=== PATIENT | female | born 1990 | race American Indian/Alaskan Native ===

== ENCOUNTER 2020-06-17 16:01 | Inpatient (IN) | payer MEDICAID ==
[2020-06-17] MEDS ORDERED: DOCUSATE SODIUM 100 MG CAP PO PRN ×2 (17:00→18:50)
[2020-06-17 17:22] LABS: Hematocrit 27.7 % (30.3-42.9); Hemoglobin 9.4 gm/dl (10.1-14.3); Mean Corpuscular HGB Conc 34 % (30-34); Mean Corpuscular Volume 86 fl (79-97); Platelet Count 236 K/mm3 (140-440); Red Blood Count 3.21 M/mm3 (3.65-5.03); Red Cell Distribution Width 15.9 % (13.2-15.2)
[2020-06-17] MEDS ORDERED: ACETAMINOPHEN 500 MG TAB PO ONE (17:35)
[2020-06-17] MEDS ORDERED: ALUM-MAG HYDROXIDE-SIMETHICONE 200-200-20MG/5ML ORAL LIQD 30 ML PO ONE (17:36)
--- NOTE | 2020-06-17 17:43 | Event Note ---
Date: 06/17/20 (Elevated blood pressures in office and chest pain)
[2020-06-17 17:48] LABS: Bacteria,Urine 1+ /HPF (Negative); Bilirubin,Urine NEG (Negative); Blood,Urine NEG (Negative); Color,Urine Yellow (Yellow); Urobilinogen,Urine < 2.0 mg/dL (<2.0)
[2020-06-17 17:54] LABS: Uric Acid 6.9 mg/dL (3.5-7.6)
[2020-06-17 17:57] LABS: Alanine Aminotransferase < 5 units/L (7-56)
--- NOTE | 2020-06-17 18:27 | History and Physical Report ---
History of Present Illness Date of examination: 06/17/20 (Sent from office d/t elevated blood pressures) Date of admission: 06/17/20 Chief complaint: Was sent from office d/t elevated blood pressures and +3 protein in her urine. History of present illness: Pt was sent from the office today d/t elevated blood pressures and +3 protein in her urine. Upon admission to triage blood pressures were noted to be 130-150's/80-90's. EDC Confirmation: 07/27/2020 Gestational Age: 34.2 wks on admission. Past History : 2 Term Births: 1 Premature Births: 0 Living Children: 1 Para: 1 Mult. Births: 0 Prev : 1 Prev. attempt? 0 Aborta: 0 Elect. Ab: 0 Spont. Ab: 0 Ectopics: 0 # 1 Delivery date: 2019 Weeks Gestation: 34 Delivery type: Sex: Male weight: 8-1 Comments: IOL - GDM (diet), LGA Risk Factors: Smoked Tobacco Use: Never smoker Smokeless Tobacco Use: Never Passive smoke exposure: no Drug use: no HIV high-risk behavior: no Caffeine use: 1 drinks per day Alcohol use: no Exercise: yes Times per week: 2 Type of Exercise: walking Seatbelt use: preg-residence counselor % Dietary Counseling: pn yes Past Medical History: Negative Past Medical History Past Surgical History: Breast Reduction: 2017 Umbilical hernia repair in childhood General Comments - FH: Mother - Breast Cancer Social History: Patient is single Smoking History: Patient has never smoked. Past Medical History Surgery (Non-medical typist): Breast Reduction: 2017 Umbilical hernia repair in childhood Abnormal PAP: negative EDWARD Exposure: negative Infertility: negative Uterine Anomaly: negative Uterine Surgery (not C/S): negative Other Gynecologic Problems: negative Family Hx: Mother - Breast Cancer Social Hx: Patient is single Smoking History: Patient has never smoked. Infection History Hx of STD: none HIV Risk Eval: no Hepatitis B Risk Eval: low risk Personal hx. of genital herpes: yes Rash, Viral, or Febrile illness since last LMP? no Varicella/Chicken Pox Status: Previous Disease TB Risk: no Genetic History Congenital Heart Defect: Mom: no Dad: no Vikas Disease: Mom: no Dad: no Thalassemia Mom: no Dad: no Neural Tube Defect Mom: no Dad: no Down's Syndrome Mom: no Dad: no Chandu-Sachs Mom: no Dad: no Sickle Cell Disease/Trait Mom: no Dad: no Hemophilia Mom: no Dad: no Muscular Dystrophy Mom: no Dad: no Cystic Fibrosis Mom: no Dad: no Libyb Chorea Mom: no Dad: no Mental Retardation Mom: no Dad: no Fragile X Mom: no Dad: no Other Genetic/Chromosomal Disorder Mom: no Dad: no Child w/other defect Mom: no Dad: no Enviromental Exposures Enviromental Exposures Reviewed Xray Exposure: no Medication, drug, or alcohol use since LMP: no Chemical/Other Exposure: no Exposure to Cat Liter: no Hx of Parvovirus (Fifth Disease): no Occupational Exposure to Children: none Comments: Working from home Active Medications (reviewed today): None Current Allergies (reviewed today): No known allergies Past History Past Medical History: no pertinent history Past Surgical History: breast surgery (Breast reduction in 2017.), section, other (Gestational diabetes in last . Umbilical hernia repair in childhood. ) Family/Genetic History: cancer (Mother has breast cancer. ) Social history: no significant social history - Obstetrical History Expected Date of Delivery: 07/27/20 Actual Gestation: 34 Week(s) 2 Day(s) : 2 Para: 1 Hx # Term Pregnancies: 0 Number of Pregnancies: 1 Spontaneous Abortions: 0 Induced : 0 Number of Living Children: 1 Medications and Allergies Allergies Allergy/AdvReac Type Severity Reaction Status Date / Time No Known Allergies Allergy Unverified 06/17/20 16:34 Home Medications Medication Instructions Recorded Confirmed Last Taken Type Docusate Sodium [Colace] 100 mg PO BID PRN #60 capsule 06/17/20 Unknown Rx Ferrous Sulfate [Feosol 325 MG tab] 325 mg PO QDAY #30 tablet 06/17/20 Unknown Rx Review of Systems All systems: negative - Vital Signs Vital signs: Vital Signs Pulse Pulse Ox 77 98 06/17/20 16:41 06/17/20 16:41 Temp Pulse Resp BP Pulse Ox 99.2 F 71 16 157/96 98 06/17/20 16:48 06/17/20 18:21 06/17/20 17:49 06/17/20 18:13 06/17/20 18:21 Pt denies PARSON, blurred vision, spots before her eyes, shortness of breath, and upper abdominal pain. While in triage pt stated to RN that she was having chest pain. Upon provider assessment, she stated that she was not longer having chest pain. Lab results reviewed and Dr. Conn consulted. Discussed with patient koffi t she will need to be admitted to labor and delivery for 24 hours so we can collect her urine, monitor her blood pressures and watch her baby on the monitor. - Physical Exam Breasts: Positive: deferred Cardiovascular: Regular rate Lungs: Positive: Normal air movement Abdomen: Positive: normal appearance, soft Uterus: Positive: normal size Extremities: Positive: normal Deep Tendon Reflex Grade: Normal +2 - Obstetrical FHR: category 1 Uterine Contraction Monitor Mode: External Uterine Contraction Pattern: Absent Results Result Diagrams: 06/17/20 16:49 06/17/20 16:49 Abnormal lab results 06/17/20 06/17/20 Range/Units 16:49 16:49 RBC 3.21 L (3.65-5.03) M/mm3 Hgb 9.4 L (10.1-14.3) gm/dl Hct 27.7 L (30.3-42.9) % RDW 15.9 H (13.2-15.2) % ALT < 5 L (7-56) units/L All other labs normal. GBS UNKNOWN. HBsAg Screen Negative Negative *1 RPR Non Reactive Non Reactive *2 Rubella Antibodies, IgG 3.74 index Immune >0.99 *3 Non-immune <0.90 Equivocal 0.90 - 0.99 Immune >0.99 ABO Grouping A *4 Rh Factor Positive *5 Please note: Prior records for this patient's ABO / Rh type are not available for additional verification. Antibody Screen Negative Negative *6 WBC 6.6 x10E3/uL 3.4-10.8 *7 RBC [L] 3.47 x10E6/uL 3.77-5.28 *8 Hemoglobin [L] 10.2 g/dL 11.1-15.9 *9 Hematocrit [L] 30.8 % 34.0-46.6 *10 MCV 89 fL 79-97 *11 MCH 29.4 pg 26.6-33.0 *12 MCHC 33.1 g/dL 31.5-35.7 *13 RDW 13.6 % 11.7-15.4 *14 Platelets 242 x10E3/uL 150-450 *15 Neutrophils 68 % Not Estab. *16 Lymphs 24 % Not Estab. *17 Monocytes 6 % Not Estab. *18 Eos 2 % Not Estab. *19 Basos 0 % Not Estab. *20 ! Immature Cells <No Reported Value> *21 Neutrophils (Absolute) 4.5 x10E3/uL 1.4-7.0 *22 Lymphs (Absolute) 1.6 x10E3/uL 0.7-3.1 *23 Monocytes(Absolute) 0.4 x10E3/uL 0.1-0.9 *24 Eos (Absolute) 0.1 x10E3/uL 0.0-0.4 *25 Baso (Absolute) 0.0 x10E3/uL 0.0-0.2 *26 ! Immature Granulocytes 0 % Not Estab. *27 ! Immature Grans (Abs) 0.0 x10E3/uL 0.0-0.1 *28 ! NRBC <No Reported Value> *29 Hematology Comments: <No Reported Value> *30 Tests: (2) AFP Tetra ([id number]) ! Results Report *31 ! Test Results: [A] *Screen Positive* *32 ! Gest. Age on Collection Date 19.9 WEEKS *33 ! Gestat. Age Based On LJ *34 07/26/2020 ! M[age]J 30.5 yr *35 ! Race Black *36 ! Weight 184 lbs *37 ! Insulin Dep Diabetes No *38 ! Multiple Gestation No *39 ! AFP Value 50.8 ng/mL *40 ! AFP MoM 0.94 *41 ! hCG Value 35859 mIU/mL *42 ! hCG MoM 2.25 *43 ! uE3 Value 1.04 ng/mL *44 ! uE3 MoM 0.49 *45 ! YOLANDA Value 251.88 pg/mL *46 ! YOLANDA MoM 1.51 *47 ! OSBR [place] 1 [place] [address] *48 ! DSR (Second Trimester) 1 IN 123 *49 ! DSR (By Age) 1 IN 741 *50 ! T18 Risk Not increased *51 ! T18 (By Age) 1:2885 *52 ! Interpretation DW42 *53 Interpretation: Screen Positive for Down Syndrome This patient is at increased risk to have a baby with Down Syndrome. The Down Syndrome risk was calculated using the gestational age provided, maternal age, AFP, hCG, uE3 and YOLANDA values. Approximately 75-80% of Down Syndrome can be detected by this test. This result is screen negative for open spina bifida. This test can identify up to 80% of open neural tube defects. Closed neural tube defects and some open defects may not be detected by this test. This test can identify approximately 60% of Trisomy 18. Recommendations: 1. Targeted ultrasound to confirm gestational age and rule out anomalies. 2. Do not repeat test. Repeating the test can result in false negatives. 3. Genetic counseling and amniocentesis are appropriate options. Recalculations are not recommended when gestational dating by LMP and ultrasound are within 10 days. ! Comments: [facility] *54 Frieda Fried, Ph.D., [facility] Director References: Available Upon Request. Multiples Of Median Cutoffs Abbreviation Definitions For AFP Elevations IDD- Insulin Dep Diabetes Agrawal 2.5 Black 2.8 OSBR- Open Spina Bifida IDD 2.0 Twins 4.5 Risk DSR Cutoff 1:270 DSR- Down Syndrome Risk T18 Cutoff 1:100 T18- Trisomy 18 Down Syndrome and Trisomy 18 screening are considered Investigational For further inquiries contact [employer] [facility] at [phone]. Tests: (3) HB Solu + Rflx Frac ([id number]) Hemoglobin (Hgb) Solubility [A] Positive Negative *55 Verified by repeat analysis Tests: (4) Hemoglobin Frac.w/o Solubility ([id number]) ! Hgb F 1.3 % 0.0-2.0 *56 ! Hgb A [L] 54.2 % 96.4-98.8 *57 ! Hgb S [H] 40.9 % 0.0 *58 ! Hgb C 0.0 % 0.0 *59 ! Hgb A2 [H] 3.6 % 1.8-3.2 *60 ! Hgb Variant <No Reported Value> *61 ! Interpretation HGAS1 *62 Hemoglobin pattern and concentration are consistent with sickle cell trait (heterozygous). Suggest clinical and hematologic correlation. Sickle Trait Interpretation Ranges Hgb A 50.0 - 70.0% Hgb S 30.0 - 45.0% Hgb A2 3.0 - 5.0%* *Hgb A2 values are seen to be increased over normal levels. This increase is typically due to interference from co-eluting Hgb S-subunits with the HPLC method and therefore the Hgb A2 interpretation ranges have been adjusted. Tests: (5) HIV Ag/Ab with Reflex ([id number]) HIV Screen 4th Generation wRfx Non Reactive Non Reactive *63 Tests: (6) Gest. Diabetes 1-Hr Screen ([id number]) ! Gestational Diabetes Screen [H] 141 mg/dL 65-139 *64 According to ADA, a glucose threshold of >139 mg/dL after 50-gram load identifies approximately 80% of women with gestational diabetes mellitus, while the sensitivity is further increased to approximately 90% by a threshold of >129 mg/dL. Tests: (7) HCV Ab w/Rflx to Verification ([id number]) ! HCV Ab <0.1 s/co ratio 0.0-0.9 *65 Tests: (8) Comment: ([id number]) ! Comment: SPRCS *66 Non reactive HCV antibody screen is consistent with no HCV infection, unless recent infection is suspected or other evidence exists to indicate HCV infection. Assessment and Plan A: 29 y.o. @ 34.2 wks with elevated blood pressures in the office. Hx of IUGR this . - Patient Problems (1) Elevated blood pressure complicating , antepartum Onset Date: ~06/17/20 Current Visit: Yes Status: Acute Plan to address problem: Admit to labor and delivery for observation. Pre eclampsia labs drawn. Initiate 24 hour urine. Monitor for s/sx of pre eclampsia. Steroids ordered. (2) with 34 completed weeks gestation Onset Date: ~06/17/20 Current Visit: Yes Status: Acute Plan to address problem: Continuous EFM at this time. Monitor for s/sx of distress.
[2020-06-17] MEDS ORDERED: ACETAMINOPHEN 325 MG TAB PO PRN (18:50)
[2020-06-17] MEDS ORDERED: ALUM-MAG HYDROXIDE-SIMETHICONE 200-200-20MG/5ML ORAL LIQD 30 ML PO PRN (18:50)
[2020-06-17] MEDS ORDERED: ONDANSETRON 4 MG/2 ML INJ IV PRN (18:50)
[2020-06-17] MEDS: BETAMET ACET/BETAMET NA PH 6 MG/ML INJ 5 ML MDV IM SCH (22:47)
[2020-06-17] MEDS: diphenhydrAMINE 25 MG CAP PO PRN (22:47)
--- NOTE | 2020-06-18 07:54 | Progress Note ---
Assessment and Plan - Patient Problems (1) Elevated blood pressure complicating , antepartum Onset Date: ~06/17/20 Current Visit: Yes Status: Acute Plan to address problem: Pt awake Eating diet. BP 130/80-70 Ongoing collection 24hr urine Due to be completed @ 183. Cat 1 FHT No ctx. DTR's wnl. No edema noted. IUP @ 34w elevated BP, proteinuria Stable No c/o voiced No PARSON, blurred vision, chest pain. P: complete 24hr urine (1829) 2nd dose BMZ due 2229. Will consult Dr Sanchez. Pt aware if TP is wnl she may go home after 2nd dose BMZ Subjective - Subjective Date of service: 06/18/20 (pt in good spirits; desires d/c after BMZ if poss) Principal diagnosis: IUP @ 34w3d with elevated BP and Proteinuria Patient reports: movement normal Objective - Vital Signs Vital Signs: Vital Signs - 12hr 06/17/20 06/17/20 06/17/20 19:48 19:53 19:58 Pulse Rate 66 70 62 Blood Pressure O2 Sat by Pulse 98 98 96 Oximetry 06/17/20 06/17/20 06/17/20 20:03 20:08 20:13 Pulse Rate 65 64 62 Blood Pressure O2 Sat by Pulse 96 97 97 Oximetry 06/17/20 06/17/20 06/17/20 20:15 20:18 20:23 Pulse Rate 60 66 66 Blood Pressure 142/81 O2 Sat by Pulse 97 97 Oximetry 06/17/20 06/17/20 06/17/20 20:28 20:33 20:38 Pulse Rate 68 76 78 Blood Pressure O2 Sat by Pulse 97 98 97 Oximetry 06/17/20 06/17/20 06/17/20 20:43 20:48 20:53 Pulse Rate 72 84 86 Blood Pressure O2 Sat by Pulse 99 97 98 Oximetry 06/17/20 06/17/20 06/17/20 20:58 21:03 21:14 Pulse Rate 79 89 71 Blood Pressure O2 Sat by Pulse 97 92 98 Oximetry 06/17/20 06/17/20 06/17/20 21:16 21:19 21:24 Pulse Rate 71 72 72 Blood Pressure 142/82 O2 Sat by Pulse 98 97 Oximetry 06/17/20 06/17/20 06/17/20 21:29 21:34 21:39 Pulse Rate 75 81 77 Blood Pressure O2 Sat by Pulse 97 98 97 Oximetry 06/17/20 06/17/20 06/17/20 21:44 21:49 21:54 Pulse Rate 76 76 82 Blood Pressure O2 Sat by Pulse 96 97 98 Oximetry 06/17/20 06/17/20 06/17/20 21:59 22:04 22:09 Pulse Rate 76 70 75 Blood Pressure O2 Sat by Pulse 98 99 98 Oximetry 06/17/20 06/17/20 06/17/20 22:14 22:15 22:19 Pulse Rate 67 72 80 Blood Pressure 136/73 O2 Sat by Pulse 97 97 Oximetry 06/17/20 06/17/20 06/17/20 22:24 22:29 22:34 Pulse Rate 77 73 69 Blood Pressure O2 Sat by Pulse 99 98 98 Oximetry 06/17/20 06/17/20 06/17/20 22:39 22:44 22:49 Pulse Rate 67 67 70 Blood Pressure O2 Sat by Pulse 98 98 99 Oximetry 06/17/20 06/17/20 06/17/20 22:54 22:59 23:04 Pulse Rate 67 82 69 Blood Pressure O2 Sat by Pulse 97 98 98 Oximetry 06/17/20 06/17/20 06/17/20 23:09 23:14 23:15 Pulse Rate 73 75 68 Blood Pressure 125/71 O2 Sat by Pulse 96 95 Oximetry 06/17/20 06/17/20 06/17/20 23:19 23:24 23:29 Pulse Rate 74 67 72 Blood Pressure O2 Sat by Pulse 97 97 97 Oximetry 06/17/20 06/17/20 06/17/20 23:34 23:39 23:44 Pulse Rate 74 72 72 Blood Pressure O2 Sat by Pulse 96 97 97 Oximetry 06/17/20 06/17/20 06/17/20 23:49 23:54 23:59 Pulse Rate 73 75 77 Blood Pressure O2 Sat by Pulse 97 96 97 Oximetry 06/18/20 06/18/20 06/18/20 00:04 00:09 00:14 Pulse Rate 74 78 75 Blood Pressure O2 Sat by Pulse 95 95 95 Oximetry 06/18/20 06/18/20 06/18/20 00:15 00:19 00:24 Pulse Rate 66 73 81 Blood Pressure 134/67 O2 Sat by Pulse 97 98 Oximetry 06/18/20 06/18/20 06/18/20 00:34 00:39 00:44 Pulse Rate 80 74 71 Blood Pressure O2 Sat by Pulse 88 97 98 Oximetry 06/18/20 06/18/20 06/18/20 00:48 00:49 00:54 Pulse Rate 70 75 64 Blood Pressure O2 Sat by Pulse 94 99 97 Oximetry 06/18/20 06/18/20 06/18/20 00:59 01:04 01:09 Pulse Rate 74 64 82 Blood Pressure O2 Sat by Pulse 96 97 98 Oximetry 06/18/20 06/18/20 06/18/20 01:13 01:14 01:15 Pulse Rate 70 77 71 Blood Pressure 129/60 O2 Sat by Pulse 94 97 Oximetry 06/18/20 06/18/20 06/18/20 01:19 01:24 01:29 Pulse Rate 65 68 66 Blood Pressure O2 Sat by Pulse 97 96 96 Oximetry 06/18/20 06/18/20 06/18/20 01:34 01:39 01:44 Pulse Rate 66 70 67 Blood Pressure O2 Sat by Pulse 96 96 96 Oximetry 06/18/20 06/18/20 06/18/20 01:49 01:54 01:59 Pulse Rate 70 70 69 Blood Pressure O2 Sat by Pulse 96 95 96 Oximetry 06/18/20 06/18/20 06/18/20 02:04 02:09 02:14 Pulse Rate 69 70 70 Blood Pressure O2 Sat by Pulse 95 95 95 Oximetry 06/18/20 06/18/20 06/18/20 02:15 02:19 02:24 Pulse Rate 71 63 71 Blood Pressure 136/60 O2 Sat by Pulse 93 97 96 Oximetry 06/18/20 06/18/20 06/18/20 02:29 02:34 02:39 Pulse Rate 74 68 69 Blood Pressure O2 Sat by Pulse 96 96 96 Oximetry 06/18/20 06/18/20 06/18/20 02:44 02:49 02:54 Pulse Rate 71 69 71 Blood Pressure O2 Sat by Pulse 96 97 96 Oximetry 06/18/20 06/18/20 06/18/20 02:59 03:04 03:09 Pulse Rate 71 76 73 Blood Pressure O2 Sat by Pulse 96 96 95 Oximetry 06/18/20 06/18/20 06/18/20 03:14 03:15 03:19 Pulse Rate 71 71 68 Blood Pressure 142/81 O2 Sat by Pulse 95 93 95 Oximetry 06/18/20 06/18/20 06/18/20 03:20 03:24 03:25 Pulse Rate 68 70 72 Blood Pressure O2 Sat by Pulse 94 94 94 Oximetry 06/18/20 06/18/20 06/18/20 03:29 03:34 03:39 Pulse Rate 70 70 68 Blood Pressure O2 Sat by Pulse 95 96 97 Oximetry 06/18/20 06/18/20 06/18/20 03:44 03:49 03:54 Pulse Rate 75 77 87 Blood Pressure O2 Sat by Pulse 96 97 98 Oximetry 06/18/20 06/18/20 06/18/20 03:59 04:04 04:09 Pulse Rate 75 76 75 Blood Pressure O2 Sat by Pulse 97 97 97 Oximetry 06/18/20 06/18/20 06/18/20 04:14 04:15 04:19 Pulse Rate 70 74 69 Blood Pressure 133/80 O2 Sat by Pulse 93 94 97 Oximetry 06/18/20 06/18/20 06/18/20 04:24 04:29 04:34 Pulse Rate 70 72 77 Blood Pressure O2 Sat by Pulse 97 97 96 Oximetry 06/18/20 06/18/20 06/18/20 04:39 04:44 04:49 Pulse Rate 76 76 77 Blood Pressure O2 Sat by Pulse 96 96 96 Oximetry 06/18/20 06/18/20 06/18/20 04:54 04:59 05:04 Pulse Rate 79 70 76 Blood Pressure O2 Sat by Pulse 96 97 96 Oximetry 06/18/20 06/18/20 06/18/20 05:09 05:14 05:15 Pulse Rate 74 76 87 Blood Pressure 143/82 O2 Sat by Pulse 97 96 90 Oximetry 06/18/20 06/18/20 06/18/20 05:19 05:24 05:29 Pulse Rate 76 65 69 Blood Pressure O2 Sat by Pulse 96 98 99 Oximetry 06/18/20 06/18/20 06/18/20 05:34 05:39 05:44 Pulse Rate 70 63 70 Blood Pressure O2 Sat by Pulse 99 99 98 Oximetry 06/18/20 06/18/20 06/18/20 05:49 05:54 05:59 Pulse Rate 71 72 68 Blood Pressure O2 Sat by Pulse 98 97 98 Oximetry 06/18/20 06/18/20 06/18/20 06:04 06:09 06:14 Pulse Rate 67 71 66 Blood Pressure 135/83 O2 Sat by Pulse 99 99 Oximetry 06/18/20 06/18/20 06/18/20 06:15 06:20 06:25 Pulse Rate 67 69 68 Blood Pressure O2 Sat by Pulse 97 98 97 Oximetry 06/18/20 06/18/20 06/18/20 06:30 06:35 06:40 Pulse Rate 68 75 91 H Blood Pressure O2 Sat by Pulse 97 96 96 Oximetry 06/18/20 06/18/20 06/18/20 06:45 06:50 06:55 Pulse Rate 74 72 71 Blood Pressure O2 Sat by Pulse 97 97 96 Oximetry 06/18/20 06/18/20 06/18/20 07:00 07:05 07:10 Pulse Rate 73 74 71 Blood Pressure O2 Sat by Pulse 98 98 97 Oximetry 06/18/20 06/18/20 06/18/20 07:14 07:15 07:29 Pulse Rate 72 79 77 Blood Pressure 137/73 O2 Sat by Pulse 97 97 Oximetry 06/18/20 06/18/20 07:34 07:39 Pulse Rate 84 81 Blood Pressure O2 Sat by Pulse 98 97 Oximetry - Exam Breasts: deferred Cardiovascular: Regular rate Lungs: Normal air movement Abdomen: Present: normal appearance, soft. Absent: distention, tenderness Uterus: Present: normal FHR: auscultation normal, category 1 Uterine Contraction Monitor Mode: External Uterine Contraction Pattern: Absent Uterine Tone Measurement Phase: Resting Extremities: normal Deep Tendon Reflex Grade: Normal +2 - Labs Labs: Abnormal Labs 06/17/20 06/17/20 16:49 16:49 RBC 3.21 L Hgb 9.4 L Hct 27.7 L RDW 15.9 H ALT < 5 L Laboratory Results - last 24 hr 06/17/20 06/17/20 06/17/20 16:49 16:49 17:00 WBC 6.7 RBC 3.21 L Hgb 9.4 L Hct 27.7 L MCV 86 MCH 29 MCHC 34 RDW 15.9 H Plt Count 236 Creatinine 0.6 Estimated GFR > 60 Uric Acid 6.9 AST 11 ALT < 5 L Lactate Dehydrogenase 144 Urine Color Yellow Urine Turbidity Clear Urine pH 7.0 Ur Specific [place] 1.006 Urine Protein 100 mg/dl Urine Glucose (UA) Neg Urine Ketones Neg Urine Blood Neg Urine Nitrite Neg Urine Bilirubin Neg Urine Urobilinogen < 2.0 Ur Leukocyte Esterase Sm Urine WBC (Auto) 3.0 Urine RBC (Auto) 5.0 U Epithel Cells (Auto) 3.0 Urine Bacteria (Auto) 1+ Syphilis IgG Antibody Blood Type Antibody Screen 06/17/20 06/17/20 18:34 19:06 WBC RBC Hgb Hct MCV MCH MCHC RDW Plt Count Creatinine Estimated GFR Uric Acid AST ALT Lactate Dehydrogenase Urine Color Urine Turbidity Urine pH Ur Specific [place] Urine Protein Urine Glucose (UA) Urine Ketones Urine Blood Urine Nitrite Urine Bilirubin Urine Urobilinogen Ur Leukocyte Esterase Urine WBC (Auto) Urine RBC (Auto) U Epithel Cells (Auto) Urine Bacteria (Auto) Syphilis IgG Antibody Nonreactive Blood Type A POSITIVE Antibody Screen Negative
[2020-06-18] MEDS ORDERED: PRENATAL VIT27-FE FUMARATE-FOLIC ACID VIT TAB PO SCH ×2 (10:00)
[2020-06-18] MEDS ORDERED: LACTATED RINGERS 1,000 ML ONE (20:16)
[2020-06-18 20:30] LABS: Creatinine 24 Hour,Urine 1.8 (0.8-2.8); Creatinine,Urine 56.5 mg/dL (0.1-20.0)
[2020-06-18] MEDS ORDERED: LACTATED RINGERS 1,000 ML IV SCH (20:30)
--- NOTE | 2020-06-18 20:47 | Ultrasound Report ---
ULTRASOUND OBSTETRIC LIMITED ULTRASOUND BIOPHYSICAL PROFILE INDICATION / CLINICAL INFORMATION: Proteinuria, elevated blood pressure. COMPARISON: None available. FINDINGS: BREATHING MOVEMENT = 0 GROSS BODY MOVEMENT = 2 TONE = 2 QUALITATIVE AMNIOTIC FLUID VOLUME = 2 TOTAL BIOPHYSICAL SCORE = 6/8 AMNIOTIC FLUID INDEX (cm) = 5.2 PRESENTATION: Cephalic. HEART RATE (beats per minute): 145 ADDITIONAL FINDINGS: None. IMPRESSION: 1. Biophysical Score = 6/8 2. Decreased OSMIN. Signer Name: Ashutosh Lopez MD Signed: 06/18/2020 8:42 PM Workstation Name: [id number]
[2020-06-18] MEDS: BETAMET ACET/BETAMET NA PH 6 MG/ML INJ 5 ML MDV IM SCH (22:40)
[2020-06-19 00:29] LABS: Bacteria,Urine 1+ /HPF (Negative); Bilirubin,Urine NEG (Negative); Blood,Urine NEG (Negative); Color,Urine Yellow (Yellow); Mucus,Urine FEW /HPF; Urobilinogen,Urine < 2.0 mg/dL (<2.0)
[2020-06-19 00:38] LABS: Hematocrit 27.3 % (30.3-42.9); Hemoglobin 9.6 gm/dl (10.1-14.3); Mean Corpuscular HGB Conc 35 % (30-34); Mean Corpuscular Volume 85 fl (79-97); Platelet Count 248 K/mm3 (140-440); Red Blood Count 3.23 M/mm3 (3.65-5.03); Red Cell Distribution Width 15.9 % (13.2-15.2)
[2020-06-19 00:48] LABS: Alanine Aminotransferase 9 units/L (7-56)
--- NOTE | 2020-06-19 01:10 | Progress Note ---
Assessment and Plan Single reported episode of variable decels earlier in the day after lunch RN called and reported Cat 1 strip with position chg. BPP ordered for after 24hr urine complete BPP 08/16 off for breathing Would be 10/18 with RNST @ the time of testing. As noted TP >5,000. Reported to Dr Sanchez. Labs repeated on my arrival back to L&D WNL. spoke with pt and her SO about my concerns and if necessary a c/s will need to be done. All questions addressed. Repeat BPP and OSMIN ordered for the AM. - Patient Problems (1) Elevated blood pressure complicating , antepartum Onset Date: ~06/17/20 Current Visit: Yes Status: Acute Plan to address problem: BPs have shown a trend up range 150-130/90-80 DTRs wnl Pt denies PARSON, blurred vision, chest pain. Pt states she is anxious @ the baby! (2) Low amniotic fluid Onset Date: ~06/19/20 Current Visit: Yes Status: Acute Qualifiers: Trimester: third trimester Plan to address problem: OSMIN 5.6 on evaluation this PM.. No evidence of ROM reported nor noted on evaluation. Pt encouraged to increase water and IVFs @ 125 started (3) Proteinuria affecting in third trimester Onset Date: ~06/19/20 Current Visit: Yes Status: Acute Plan to address problem: Pt completed 24hr urine collection Results total protein 5760 Total collection volume 3200. Subjective - Subjective Date of service: 06/19/20 (Reviewed concerns and POC with pt and her SO) Principal diagnosis: IUP @ 34w4d with elevated BP and Proteinuria Patient reports: movement normal Objective - Vital Signs Vital Signs: Vital Signs - 12hr 06/18/20 06/18/20 06/18/20 13:42 13:43 13:44 Temperature Pulse Rate 87 95 H 96 H Respiratory Rate Blood Pressure 131/68 O2 Sat by Pulse 82 L 99 Oximetry 06/18/20 06/18/20 06/18/20 13:48 13:49 13:50 Temperature 98.5 F Pulse Rate 107 H 102 H Respiratory Rate Blood Pressure O2 Sat by Pulse 95 90 Oximetry 06/18/20 06/18/20 06/18/20 13:53 13:58 14:02 Temperature Pulse Rate 104 H 94 H 103 H Respiratory Rate Blood Pressure O2 Sat by Pulse 97 98 92 Oximetry 06/18/20 06/18/20 06/18/20 14:03 14:08 14:13 Temperature Pulse Rate 92 H 91 H 99 H Respiratory Rate Blood Pressure O2 Sat by Pulse 98 98 96 Oximetry 06/18/20 06/18/20 06/18/20 14:17 14:18 14:23 Temperature Pulse Rate 98 H 98 H 97 H Respiratory Rate Blood Pressure O2 Sat by Pulse 94 94 93 Oximetry 06/18/20 06/18/20 06/18/20 14:28 14:31 14:33 Temperature Pulse Rate 98 H 112 H 97 H Respiratory Rate Blood Pressure O2 Sat by Pulse 93 94 97 Oximetry 06/18/20 06/18/20 06/18/20 14:38 14:43 14:48 Temperature Pulse Rate 111 H 93 H 86 Respiratory Rate Blood Pressure O2 Sat by Pulse 97 96 97 Oximetry 06/18/20 06/18/20 06/18/20 14:53 14:58 15:03 Temperature Pulse Rate 91 H 91 H 98 H Respiratory Rate Blood Pressure O2 Sat by Pulse 96 96 95 Oximetry 06/18/20 06/18/20 06/18/20 15:08 15:10 15:13 Temperature 97.9 F Pulse Rate 96 H 92 H Respiratory 17 Rate Blood Pressure O2 Sat by Pulse 96 97 Oximetry 06/18/20 06/18/20 06/18/20 15:18 15:24 15:29 Temperature Pulse Rate 89 89 Respiratory Rate Blood Pressure O2 Sat by Pulse 100 100 95 Oximetry 06/18/20 06/18/20 06/18/20 15:32 15:34 15:39 Temperature Pulse Rate 92 H 94 H 90 Respiratory Rate Blood Pressure O2 Sat by Pulse 94 100 97 Oximetry 06/18/20 06/18/20 06/18/20 15:44 15:49 15:55 Temperature Pulse Rate 94 H 90 37 L Respiratory Rate Blood Pressure O2 Sat by Pulse 96 91 98 Oximetry 06/18/20 06/18/20 06/18/20 16:00 16:05 16:10 Temperature 98.2 F Pulse Rate 90 94 H 95 H Respiratory 15 Rate Blood Pressure O2 Sat by Pulse 99 97 94 Oximetry 06/18/20 06/18/20 06/18/20 16:12 16:15 16:21 Temperature Pulse Rate 99 H 94 H 96 H Respiratory Rate Blood Pressure O2 Sat by Pulse 88 99 95 Oximetry 06/18/20 06/18/20 06/18/20 16:27 16:32 16:37 Temperature Pulse Rate 106 H 101 H 96 H Respiratory Rate Blood Pressure O2 Sat by Pulse 96 85 96 Oximetry 06/18/20 06/18/20 06/18/20 16:38 16:42 16:47 Temperature Pulse Rate 100 H 93 H 100 H Respiratory Rate Blood Pressure O2 Sat by Pulse 89 100 92 Oximetry 06/18/20 06/18/20 06/18/20 16:48 16:53 16:58 Temperature Pulse Rate 97 H 87 91 H Respiratory Rate Blood Pressure O2 Sat by Pulse 98 98 98 Oximetry 06/18/20 06/18/20 06/18/20 17:03 17:04 17:09 Temperature Pulse Rate 85 95 H Respiratory Rate Blood Pressure O2 Sat by Pulse 100 49 L 100 Oximetry 06/18/20 06/18/20 06/18/20 17:14 17:19 17:23 Temperature Pulse Rate 95 H 91 H 95 H Respiratory Rate Blood Pressure O2 Sat by Pulse 99 97 81 L Oximetry 06/18/20 06/18/20 06/18/20 17:24 17:29 17:34 Temperature Pulse Rate 92 H 101 H 96 H Respiratory Rate Blood Pressure O2 Sat by Pulse 96 95 98 Oximetry 06/18/20 06/18/20 06/18/20 17:37 17:39 17:43 Temperature Pulse Rate 98 H 97 H 73 Respiratory Rate Blood Pressure O2 Sat by Pulse 94 98 82 L Oximetry 06/18/20 06/18/20 06/18/20 17:46 17:52 17:53 Temperature Pulse Rate 95 H 89 158 H Respiratory Rate Blood Pressure O2 Sat by Pulse 99 99 85 Oximetry 06/18/20 06/18/20 06/18/20 17:57 18:02 18:06 Temperature Pulse Rate 95 H 88 Respiratory Rate Blood Pressure O2 Sat by Pulse 96 100 92 Oximetry 06/18/20 06/18/20 06/18/20 18:08 18:13 18:17 Temperature Pulse Rate 96 H 82 89 Respiratory Rate Blood Pressure O2 Sat by Pulse 94 100 88 Oximetry 06/18/20 06/18/20 06/18/20 18:20 18:22 18:25 Temperature Pulse Rate 54 L 82 Respiratory Rate Blood Pressure O2 Sat by Pulse 99 78 L 100 Oximetry 06/18/20 06/18/20 06/18/20 18:28 18:30 18:37 Temperature Pulse Rate 90 84 80 Respiratory Rate Blood Pressure O2 Sat by Pulse 92 100 93 Oximetry 06/18/20 06/18/20 06/18/20 18:42 18:43 18:47 Temperature Pulse Rate 85 100 H 85 Respiratory Rate Blood Pressure O2 Sat by Pulse 98 83 L 100 Oximetry 06/18/20 06/18/20 06/18/20 18:52 19:20 20:27 Temperature 98.4 F Pulse Rate 83 85 Respiratory Rate Blood Pressure O2 Sat by Pulse 98 100 Oximetry 06/18/20 06/18/20 06/18/20 20:30 20:32 20:37 Temperature 98.1 F Pulse Rate 81 77 Respiratory 16 Rate Blood Pressure O2 Sat by Pulse 98 99 Oximetry 06/18/20 06/18/20 06/18/20 20:39 20:42 20:47 Temperature Pulse Rate 77 74 80 Respiratory Rate Blood Pressure 135/77 O2 Sat by Pulse 99 99 Oximetry 06/18/20 06/18/20 06/18/20 20:52 20:57 21:02 Temperature Pulse Rate 72 81 77 Respiratory Rate Blood Pressure O2 Sat by Pulse 100 99 99 Oximetry 06/18/20 06/18/20 06/18/20 21:07 21:12 21:17 Temperature Pulse Rate 79 81 79 Respiratory Rate Blood Pressure O2 Sat by Pulse 99 98 99 Oximetry 06/18/20 06/18/20 06/18/20 21:22 21:27 21:32 Temperature Pulse Rate 79 75 75 Respiratory Rate Blood Pressure O2 Sat by Pulse 98 99 99 Oximetry 06/18/20 06/18/20 06/18/20 21:37 21:42 21:47 Temperature Pulse Rate 77 75 79 Respiratory Rate Blood Pressure O2 Sat by Pulse 100 99 99 Oximetry 06/18/20 06/18/20 06/18/20 21:52 21:57 22:02 Temperature Pulse Rate 89 77 76 Respiratory Rate Blood Pressure O2 Sat by Pulse 98 99 100 Oximetry 06/18/20 06/18/20 06/18/20 22:07 22:23 22:28 Temperature Pulse Rate 73 80 77 Respiratory Rate Blood Pressure O2 Sat by Pulse 100 99 99 Oximetry 06/18/20 06/18/20 06/18/20 22:33 22:38 22:43 Temperature Pulse Rate 81 88 74 Respiratory Rate Blood Pressure O2 Sat by Pulse 99 99 100 Oximetry 06/18/20 06/18/20 06/18/20 22:48 22:53 22:58 Temperature Pulse Rate 73 76 76 Respiratory Rate Blood Pressure O2 Sat by Pulse 99 98 100 Oximetry 06/18/20 06/18/20 06/18/20 23:03 23:08 23:13 Temperature Pulse Rate 77 81 77 Respiratory Rate Blood Pressure O2 Sat by Pulse 98 99 99 Oximetry 06/18/20 06/18/20 06/18/20 23:18 23:23 23:28 Temperature Pulse Rate 76 82 75 Respiratory Rate Blood Pressure O2 Sat by Pulse 99 99 99 Oximetry 06/18/20 06/18/20 06/18/20 23:33 23:38 23:44 Temperature Pulse Rate 74 73 83 Respiratory Rate Blood Pressure O2 Sat by Pulse 99 99 100 Oximetry 06/18/20 06/18/20 06/18/20 23:45 23:49 23:54 Temperature Pulse Rate 77 82 77 Respiratory Rate Blood Pressure 136/73 O2 Sat by Pulse 99 100 Oximetry 06/19/20 06/19/20 06/19/20 00:17 00:22 00:27 Temperature Pulse Rate 75 74 73 Respiratory Rate Blood Pressure O2 Sat by Pulse 99 99 99 Oximetry 06/19/20 06/19/20 06/19/20 00:32 00:37 00:42 Temperature Pulse Rate 94 H 71 77 Respiratory Rate Blood Pressure O2 Sat by Pulse 98 100 98 Oximetry 06/19/20 06/19/20 06/19/20 00:46 00:47 00:52 Temperature Pulse Rate 73 74 74 Respiratory Rate Blood Pressure 140/90 O2 Sat by Pulse 99 98 Oximetry 06/19/20 06/19/20 00:57 01:02 Temperature Pulse Rate 67 73 Respiratory Rate Blood Pressure O2 Sat by Pulse 98 98 Oximetry - Exam Breasts: deferred Cardiovascular: Regular rate Lungs: Normal air movement Abdomen: Present: normal appearance, soft. Absent: distention, tenderness Uterus: Present: normal FHR: auscultation normal, category 1 Uterine Contraction Monitor Mode: External Uterine Contraction Pattern: Irregular Uterine Tone Measurement Phase: Resting Uterine Contraction Intensity: Mild Extremities: normal Deep Tendon Reflex Grade: Normal +2 - Labs Labs: Abnormal Labs 06/17/20 06/17/20 06/18/20 16:49 16:49 18:55 RBC 3.21 L Hgb 9.4 L Hct 27.7 L MCHC RDW 15.9 H Creatinine ALT < 5 L Urine WBC (Auto) U Epithel Cells (Auto) Urine Creatinine 56.5 H Ur Total Protein 24 Hr 5760.00 H Urine Total Protein 180 H 06/18/20 06/18/20 06/18/20 23:55 23:55 23:55 RBC 3.23 L Hgb 9.6 L Hct 27.3 L MCHC 35 H RDW 15.9 H Creatinine 0.5 L ALT Urine WBC (Auto) 13.0 H U Epithel Cells (Auto) 18.0 H Urine Creatinine Ur Total Protein 24 Hr Urine Total Protein Laboratory Results - last 24 hr 06/18/20 06/18/20 06/18/20 09:30 18:55 23:55 WBC RBC Hgb Hct MCV MCH MCHC RDW Plt Count Creatinine Estimated GFR AST ALT Urine Color Yellow Urine Turbidity Cloudy Urine pH 6.0 Ur Specific [place] 1.008 Urine Protein 100 mg/dl Urine Glucose (UA) Neg Urine Ketones Neg Urine Blood Neg Urine Nitrite Neg Urine Bilirubin Neg Urine Urobilinogen < 2.0 Ur Leukocyte Esterase Lg Urine WBC (Auto) 13.0 H Urine RBC (Auto) 16.0 U Epithel Cells (Auto) 18.0 H Urine Bacteria (Auto) 1+ Urine Mucus Few Urine Total Volume 3200 Urine Creatinine 56.5 H Ur Creatinine 24 Hour 1.8 Ur Total Protein 24 Hr 5760.00 H Urine Total Protein 180 H Coronavirus (PCR) Negative 06/18/20 06/18/20 23:55 23:55 WBC 10.8 RBC 3.23 L Hgb 9.6 L Hct 27.3 L MCV 85 MCH 30 MCHC 35 H RDW 15.9 H Plt Count 248 Creatinine 0.5 L Estimated GFR > 60 AST 11 ALT 9 Urine Color Urine Turbidity Urine pH Ur Specific [place] Urine Protein Urine Glucose (UA) Urine Ketones Urine Blood Urine Nitrite Urine Bilirubin Urine Urobilinogen Ur Leukocyte Esterase Urine WBC (Auto) Urine RBC (Auto) U Epithel Cells (Auto) Urine Bacteria (Auto) Urine Mucus Urine Total Volume Urine Creatinine Ur Creatinine 24 Hour Ur Total Protein 24 Hr Urine Total Protein Coronavirus (PCR)
[2020-06-19 01:14] LABS: Uric Acid 6.6 mg/dL (3.5-7.6)
[2020-06-19] MEDS: diphenhydrAMINE 25 MG CAP PO PRN (01:14)
--- NOTE | 2020-06-19 07:48 | Event Note ---
Date: 06/19/20 (deep variable to 60bmp) Deep variable noted Pt OOB to toilet when I arrived to LDR Instructed to ask for assistance to the toilet from now on
[2020-06-19] MEDS ORDERED: METOCLOPRAMIDE 10 MG/2 ML INJ IV ONE (10:12)
[2020-06-19] MEDS ORDERED: BICITRA ORAL LIQD 30ML PO ONE (10:12)
[2020-06-19] MEDS ORDERED: FAMOTIDINE 20 MG/2 ML INJ IV ONE (10:12)
--- NOTE | 2020-06-19 10:12 | Event Note ---
Date: 06/19/20 Patient with proteinuria and severe range. Biophysical profile ultrasound 6 out of 8 with no breathing. Patient with gestational hypertension with severe proteinuria. Discussed with the patient ultrasound findings and her laboratory findings and her vital signs findings along with their diagnosis of intrauterine growth retardation. Discussed these indications for delivery and patient status post 2 doses of betamethasone. Patient with a previous section. Patient informed the risks of the surgery include bleeding possibly bleeding heavy enough to require blood transfusion, infection possible damage to bowel bladder ureter. Also discussed decreased risk of adjacent organ damage due to previous surgery, all questions answered. Patient agrees to proceed
[2020-06-19] MEDS ORDERED: LACTATED RINGERS 1,000 ML IV SCH (10:15)
[2020-06-19] MEDS ORDERED: KETOROLAC 30 MG/1 ML INJ ONE (10:25)
[2020-06-19] MEDS ORDERED: ONDANSETRON 4 MG/2 ML INJ ONE (10:25)
[2020-06-19] MEDS ORDERED: BUPIVACAINE/PF (0.5%) 5 MG/1 ML 30 ML VIAL INFILTRATI ONE (10:25)
[2020-06-19] MEDS ORDERED: PHENYLEPHRINE 10 MG/1 ML INJ SDV ONE (10:25)
--- NOTE | 2020-06-19 10:30 | Anesthesia Consultation ---
Anesthesia Consult and Med Hx Date of service: 06/19/20 - Airway Anesthetic Teeth Evaluation: Good ROM Head & Neck: Adequate Mental/Hyoid Distance: Adequate Mallampati Class: Class II Intubation Access Assessment: Probably Good - Pulmonary Exam CTA: Yes - Cardiac Exam Cardiac Exam: RRR - Pre-Operative Health Status ASA Pre-Surgery Classification: ASA3 Proposed Anesthetic Plan: Spinal - Pulmonary Hx Asthma: No COPD: No Hx Pneumonia: No - Cardiovascular System Hx Hypertension: Yes - Central Nervous System Hx Seizures: No Hx Psychiatric Problems: No - Endocrine Hx Renal Disease: No Hx End Stage Renal Disease: No Hx Hypothyroidism: No Hx Hyperthyroidism: No - Hematic Hx Anemia: No Hx Sickle Cell Disease: No - Other Systems Hx Alcohol Use: No
--- NOTE | 2020-06-19 10:30 | Anesthesia Day of Surgery ---
Anesthesia Day of Surgery - Day of Surgery Patient Examined: Yes Patient H&P Reviewed: Yes Patient is NPO: Yes
[2020-06-19] MEDS ORDERED: ceFAZolin/Water 2 GM/20 ML 2 GM/20 ML SYRINGE IV NR (11:00)
[2020-06-19] MEDS ORDERED: OXYTOCIN DRIP 30 UNITS/500 ML BAG IV SCH ×2 (11:00→14:26)
[2020-06-19] MEDS ORDERED: LACTATED RINGERS 1,000 ML ONE (11:08)
[2020-06-19] MEDS ORDERED: ceFAZolin/STERILE WATER 2 GM/20 ML SYRINGE IV ONE (11:20)
--- NOTE | 2020-06-19 11:20 | Ultrasound Report ---
Limited obstetrical ultrasound INDICATION: well being, abnormal findings on recent study COMPARISON: 06/18/2020 FINDINGS: Advanced intrauterine is again seen with fetus in a cephalic position. Placenta i s not well imaged but is free of the internal cervical os. heart rate was noted today at 154 bp m. OSMIN measures 7.1 cm today at the lower end of the normal range, a mildly increased value compared to yesterday's measurement of 5.2 cm. BIOPHYSICAL PROFILE breathing movements: 0/2 movements: 2/2 posture and tone tone: 2/2 Qualitative amniotic fluid volume: 2/2 Total score: 6/8, decreased but unchanged from study yesterday Signer Name: Joshua Espinoza MD Signed: 06/19/2020 11:16 AM Workstation Name: [id number]
--- NOTE | 2020-06-19 12:35 | Operative Report ---
Operative Report Operative Report: Date of procedure: June 19, 2020 Pre-operative diagnosis: Intrauterine at 34 weeks with severe pr eeclampsia, intrauterine growth retardation and previous section Post-operative diagnosis: Same Procedure name(s): Repeat low transverse section Surgeon: Micah Sanchez MD Cold Work Operator: GILL Anesthesia: Spinal EBL: 700 cc Complications: None Findings: Patient with adhesion of the anterior uterine wall to the anterior abdominal wall with normal-appearing tubes and ovaries bilaterally. Male weight 3 pounds 11 ounces Apgars 8 at 1 minute and 9 at 5 minutes Specimen(s): None Procedure: The patient was brought to the operating room. A spinal was placed without any complications. She was then placed in left lateral tilt. Prepped and draped in the usual sterile manner. After testing for adequate anesthesia level, a Pfannenstiel incision was made through her previous scar. This incision was taken down to the fascia. The fascia was then nicked in the midline. This incision was extended out laterally with Stahl scissors. The fascia was then sharply and bluntly from the underlying rectus muscles. The rectus muscles were bluntly and sharply . The peritoneum was then entered with the cutting torch operator's fingers. This incision was spread vertically with care not to damage the bladder below. The bladder flap was then formed sharply and bluntly with Metzenbaum scissors. The Gabriele self-retaining tractor was then placed without any difficulty. A transverse incision was made in lower uterine segment. This incision was extended laterally with the operators fingers. The amniotic sac was then entered bluntly with the ope rator's fingers. The infant was delivered from the vertex position. Bulb suction on the mother's abdomen. Cord was double clamped and cut. The infant was then passed to the nursery personnel who were in attendance. The above scores were given by the nursery personnel. The placenta was then bluntly removed. The uterus was then externalized and wiped clean the remaining products. The uterine incision was closed in layers. The first incision was closed in a locking manner using 0 Vicryl. This was followed by imbricating stitch also with 0 Vicryl. This closure was hemostatic. The bladder flap was copiously irrigated and found to be hemostatic. The pelvis was copiously irrigated and found to be hemostatic. The uterus was then placed back to the patient's abdomen. The retractors were removed. The rectus muscles were inspected and found to be hemostatic. The fascia was then closed in a running manner using 0 Vicryl. This incision was hemostatic irrigation Bovie. The skin was reapproximated with 4-0 Vicryl subcuticularly. The patient tolerated procedure well. Her urine was clear. The infant was admitted to the intensive care nursery. The patient was accompanied to recovery room in good condition. Instrument count correct x3
--- NOTE | 2020-06-19 13:11 | Progress Note ---
Spinal Anesthesia Block - Spinal Anesthesia Block Start Time: 11:07 Stop Time: 11:11 Performed by:: GURVINDER LAW Procedure: Sitting, sterile chlorahexadine 0.5% prep/drape, 1% lidocaine skin local, 25G spinal needle + introducer at L3-4, + CSF, - Heme, [1.9 ml 0.5% bupivacaine + 10 mcg dexmedetomidine] injected, drape removed, patient positioned supine with left uterine displacement, and spinal level verified to be adequate prior to surgery. Gurvinder AMADOR
--- NOTE | 2020-06-19 13:12 | Progress Note ---
Regional Anesthesia Block - Regional Anesthesia Block Start Time: 12:25 Stop Time: 12:30 Performed By:: GURVINDER LAW Procedure: U/S guided bilateral tap block performed for post-operative pain requested by Dr. Sanchez. H&P & labs reviewed. Procedure explained, questions answered, consent obtained. Patient in the supine position with ekg, blood pressure cuff and pulse ox on and working in PACU. Timeout performed immediately before start of procedure. Probe placed in the mid-axillary line and the external oblique, internal oblique, and transverse abdominus muscles identified. Skin was cleansed with chlorahexadine 0.5% and allowed to dry. A 4" 20 G Wagner echogenic needle was advanced in plane until the tip was in the fascial plane between the internal oblique and the transverse abdominus. After negative aspiration 35 ml/side of [30 ml 0.5% Bupivacaine], [10 mg dexamethasone], and [40 ml sterile saline] was injected in 5 ml increments with negative aspiration in between. Patient tolerated procedure well. Gurvinder AMADOR
[2020-06-19] MEDS ORDERED: D5W/LACTATED RINGERS 1,000 ML IV SCH (14:26)
[2020-06-19] MEDS ORDERED: NALOXONE 0.4 MG/1 ML INJ IV PRN (14:26)
[2020-06-19] MEDS ORDERED: SIMETHICONE 80 MG CHEW TAB PO PRN (14:26)
[2020-06-19] MEDS ORDERED: HYDROcodone/ACETAMINOPHEN 5-325 MG TAB PO PRN (14:26)
[2020-06-19] MEDS ORDERED: LANOLIN/ZINC/DIMETHICONE (LANSINOH) 7 GM TP PRN (14:26)
[2020-06-19] MEDS ORDERED: WITCH HAZEL/ GLYCERIN PAD TP PRN (14:26)
[2020-06-19] MEDS ORDERED: SENNOSIDES 8.6 MG TAB PO PRN (14:26)
[2020-06-19] MEDS ORDERED: MAGNESIUM HYDROXIDE (MOM) ORAL LIQD UDC PO PRN (14:26)
[2020-06-19] MEDS: KETOROLAC 30 MG/1 ML INJ IV SCH ×2 (14:59→21:20)
[2020-06-19] MEDS: HYDROcodone/ACETAMINOPHEN 5-325 MG TAB PO PRN (16:50)
[2020-06-19] MEDS: ceFAZolin/NS 1 GM/50 ML 1 GM/50 ML BAG IV SCH (19:16)
[2020-06-20] MEDS: HYDROcodone/ACETAMINOPHEN 5-325 MG TAB PO PRN ×3 (02:11→23:34)
[2020-06-20] MEDS: ceFAZolin/NS 1 GM/50 ML 1 GM/50 ML BAG IV SCH (04:19)
[2020-06-20] MEDS: KETOROLAC 30 MG/1 ML INJ IV SCH ×2 (04:19→14:17)
[2020-06-20 06:52] LABS: Hematocrit 24.3 % (30.3-42.9); Hemoglobin 8.1 gm/dl (10.1-14.3)
--- NOTE | 2020-06-20 08:58 | Post Anesthesia Evaluation ---
- Post Anesthesia Evaluation Patient Participated: Yes Airway Patent: Yes Stable Respiratory Function: Yes Nausea/Vomiting: No Temp > 96.8F: Yes Pain Manageable: Yes Adequeate Hydration: Yes Anesthesia Complications: No Block Receding Appropriately: Yes Patient on Ventilator: No
[2020-06-20] MEDS: PRENATAL VIT27-FE FUMARATE-FOLIC ACID VIT TAB PO SCH (09:52)
[2020-06-20] MEDS: FERROUS SULFATE 325 MG TAB PO SCH (09:52)
--- NOTE | 2020-06-20 10:15 | Progress Note ---
Assessment and Plan A: 29 y.o. s/p rpt d/t gHTN, proteinuria. POD #1. P: Continue with care. Advance diet as tolerated. Encourage ambulation. Anticipate discharge home on 06/21. - Patient Problems (1) Elevated blood pressure complicating , antepartum Onset Date: ~06/17/20 Current Visit: Yes Status: Acute (2) with 34 completed weeks gestation Onset Date: ~06/17/20 Current Visit: Yes Status: Resolved Subjective - Subjective Date of service: 06/20/20 (Late Entry: pt seen @ 0830) Principal diagnosis: s/p rpt , gHTN Patient reports: appetite normal, voiding normally, pain well controlled, flatus, ambulating normally : doing well, in NICU Objective - Vital Signs Latest vital signs: Vital Signs Temp Pulse Resp BP BP Pulse Ox 06/20/20 08:36 97.4 F L 66 18 142/84 97 06/20/20 05:06 98.0 F 63 20 134/69 97 06/20/20 04:49 18 06/20/20 04:19 16 06/20/20 03:11 18 06/20/20 02:11 18 06/20/20 00:01 97.9 F 70 20 145/86 99 06/19/20 21:50 18 06/19/20 21:20 18 06/19/20 20:28 98.0 F 72 20 132/90 98 06/19/20 17:00 98.3 F 76 18 147/90 100 06/19/20 14:30 98.1 F 20 06/19/20 14:16 68 156/76 98 06/19/20 13:18 67 14 129/70 100 06/19/20 13:00 98 F 66 17 134/72 100 06/19/20 12:45 65 19 129/76 99 06/19/20 12:30 67 24 126/74 100 06/19/20 12:25 67 21 124/67 93 06/19/20 12:20 67 13 127/72 100 06/19/20 12:17 98 F 68 24 118/71 100 06/19/20 10:33 87 141/89 06/19/20 10:17 101 H 98 Intake and Output 06/19/20 06/20/20 06/20/20 22:59 06:59 14:59 Intake Total 450 840 Output Total 300 1100 1000 Balance 150 -260 -1000 Intake: IV 50 ANCEF/NS 1 GM/50 ML 1 gm 50 In 50 ml @ 100 mls/hr IV Q8H [facility] Rx#:[id number] Oral 300 360 Intake, Free Water 100 480 Output: Urine 300 1100 1000 Indwelling Catheter 300 600 Void 500 1000 Other: Total, Intake Amount 300 360 Total, Output Amount 050 848 2665 # Voids Indwelling Catheter 1 Void 1 - Exam Narrative Exam: Pt denies PARSON, blurred vision, spots before her eyes, chest pain, shortness of breath, and upper abdominal pain. Breasts: Present: deferred Cardiovascular: Present: Regular rate Lungs: Present: Normal air movement Abdomen: Present: normal appearance, soft Uterus: Present: normal, firm Extremities: Present: normal Deep Tendon Reflex Grade: Normal +2 Incision: Present: normal, dry, intact, other (No s/sx of infection and no drainage noted. ) - Labs Labs: Abnormal lab results 06/20/20 Range/Units 06:29 Hgb 8.1 L (10.1-14.3) gm/dl Hct 24.3 L (30.3-42.9) %
[2020-06-21] MEDS: IBUPROFEN 800 MG TAB PO PRN ×2 (05:12→13:04)
[2020-06-21] MEDS: HYDROcodone/ACETAMINOPHEN 5-325 MG TAB PO PRN ×2 (08:09→22:46)
--- NOTE | 2020-06-21 08:20 | Progress Note ---
Assessment and Plan POD #2, incision D&I. Baby in NICU. H&H 8.1/24.3, asymptomatic anemia r/t acute blood loss. b/p 130-140/69-84. denies PARSON, visual changes or upper abd pain. Pt would like d/t home tomorrow d/t baby being in NICU. Encouraged pumping of breastmilk for baby. - Patient Problems (1) delivery delivered Current Visit: Yes Status: Acute Plan to address problem: continue postop pathway d/c home tomorrow. (2) Elevated blood pressure complicating , antepartum Onset Date: ~06/17/20 Current Visit: Yes Status: Acute Subjective - Subjective Date of service: 06/21/20 Principal diagnosis: postop day #2; rpt , gHTN Patient reports: appetite normal, voiding normally, pain well controlled, flatus, ambulating normally, no dizzy ambulation, no nauseated [place]: in NICU Objective - Vital Signs Latest vital signs: Vital Signs Temp Pulse Resp BP Pulse Ox 06/21/20 08:09 18 06/21/20 00:37 98.3 F 77 20 131/55 98 06/20/20 16:14 98.2 F 80 18 125/69 98 06/20/20 08:36 97.4 F L 66 18 142/84 97 Intake and Output 06/20/20 06/21/20 06/21/20 23:59 07:59 15:59 Intake Total 420 Output Total 400 Balance 20 Intake: Oral 420 Output: Urine 400 Void 400 Other: Total, Intake Amount 420 Total, Output Amount 400 - Exam Breasts: Present: normal (filling with milk and leaking milk) Cardiovascular: Present: Regular rate Lungs: Present: Clear to auscultation, Normal air movement Abdomen: Present: normal appearance, soft, normal bowel sounds Vulva: both: normal Uterus: Present: normal, firm, fundal height below umbilicus Extremities: Present: normal Deep Tendon Reflex Grade: Normal +2 Incision: Present: normal, dry, intact
[2020-06-21] MEDS: FERROUS SULFATE 325 MG TAB PO SCH (09:44)
[2020-06-21] MEDS: PRENATAL VIT27-FE FUMARATE-FOLIC ACID VIT TAB PO SCH (09:44)
--- NOTE | 2020-06-22 06:34 | Discharge Summary ---
Providers - Providers Date of Admission: 06/19/20 12:37 Date of discharge: 06/22/20 (desires discharge) Attending physician: ESME BONILLA 06/19/20 14:26 Consult to [facility] [CONS] Routine Reason For Exam: Primary care physician: ESME BONILLA Hospitalization Reason for admission: IUP - , other (elevated BP, Proteinuria) Delivery: Procedure: repeat low transverse Episiotomy: none Laceration: none Incision: normal, dry, intact Other procedures: none complications: none Discharge diagnosis: delivery [place] baby: male (remains in NICU stable) Hospital course: Uncomplicated repeat Pt alert and oriented X3 and doing well status post VSS. H&H 8.1/24.3. Fundus firm and 1 below the umbilicus. Incision dry, intact, PARTHA. Lochia scant. Pt has been ambulating and passing flatus. Plan to discharge today and follow up in office in one week for incision check. Condition at discharge: Stable Disposition: [id number] TO HOME OR SELFCARE - Discharge Diagnoses (1) delivery delivered Status: Acute Comment: RTO 1 week postop check Plan - Discharge Medications Prescriptions: Lidocain2.5%/Prilocai2.5% [Emla] 5 gm TP ONCE #1 tube Ferrous Sulfate [Feosol 325 MG tab] 325 mg PO BID #60 tablet Ibuprofen [Motrin] 800 mg PO TID PRN #30 tablet PRN Reason: Pain oxyCODONE /ACETAMINOPHEN [Percocet 5/325 mg] 1 - 2 tab PO Q6HR PRN #20 tablet PRN Reason: Pain - Provider Discharge Summary Activity: routine, no sex for 6 weeks, no heavy lifting 4 weeks, no strenuous exercise Diet: routine Instructions: routine Additional instructions: [] Smoking cessation referral if applicable(refer to patient education folder for contact #) [] Refer to [facility] Booklet Call your doctor immediately for: * Fever > 100.5 * Heavy vaginal bleeding ( >1 pad per hour) * Severe persistent headache * Shortness of breath * Reddened, hot, painful area to leg or breast * Drainage or odor from incision. * Keep incision clean and dry at all times and follow doctor's instructions regarding bathing/showering - Follow up plan Follow up: ESME BONILLA MD [Primary Care Provider] - 7 Days (Congratulations! Please call [phone] to schedule postoperative visit in one week. Take medications as prescribed. Call with any concerns.)
[2020-06-22] MEDS: HYDROcodone/ACETAMINOPHEN 5-325 MG TAB PO PRN ×2 (06:35→13:42)
[2020-06-22] MEDS: FERROUS SULFATE 325 MG TAB PO SCH (13:43)
[2020-06-22] MEDS: PRENATAL VIT27-FE FUMARATE-FOLIC ACID VIT TAB PO SCH (13:43)
[2020-06-22 14:56] VITALS: BP 139/52
== END 2020-06-22 14:15 | disposition home or self-care (01) | DRG 765 ==
LOC: TRG 16:01 → APU 16:03 → UNDOADMOB 18:41 → TRG 18:41 → LD 18:41 → OBSVTOIN 06-19 12:37 → LD 06-19 12:37 → OB 06-19 14:16
PROVIDERS: ADMIT Obstetrics & Gynecology; ATTEND Obstetrics & Gynecology
PROC: 10D00Z1 Extraction of Products of Conception, Low, Open Approach (ICD-10-PCS; principal; 2020-06-19)
DX: O60.14X0 Preterm labor third trimester with preterm delivery third trimester, not applicable or unspecified (principal); D62 Acute posthemorrhagic anemia; O14.14 Severe pre-eclampsia complicating childbirth; O36.5930 Maternal care for other known or suspected poor fetal growth, third trimester, not applicable or unspecified; Z20.822 Contact with and (suspected) exposure to COVID-19; Z3A.34 34 weeks gestation of pregnancy; Z37.0 Single live birth; O13.4 Gestational [pregnancy-induced] hypertension without significant proteinuria, complicating childbirth; O90.81 Anemia of the puerperium
CPT/HCPCS: 36415; 59025; 76815; 76819; 81001; 82565; 82570; 83615; 84156; 84450; 84460; 84550; 85014; 85018; 85027; 86592; 86850; 86900; 86901; 87086; 88307; G0378; C1765; J0690; J0702; J1885; J2370; J2405; J2765; J3490; J7120; J7121; U0003